=== PATIENT | male | born 1990 | race Caucasian/White ===

== ENCOUNTER 2023-09-29 05:37 | Emergency (ER) | payer OTHER ==
[~2023-09-29] VITALS: Ht 175.3 cm; Wt 84.1 kg
[2023-09-29 05:42] VITALS: TEMP 98.2
[2023-09-29] MEDS ORDERED: Ibuprofen 600 MG TAB PO ONE (06:15)
[2023-09-29 08:02] VITALS: BP 139/81; PULSE 80
== END 2023-09-29 08:08 ==
LOC: COL.ER 05:37
DX: F32.A Depression, unspecified (principal)